=== PATIENT | male | born 1955 | race Caucasian/White ===

== ENCOUNTER 2018-11-23 08:55 | Day surgery (SDC) | payer BC ==
[2018-11-23] MEDS ORDERED: LIDOCAINE HCL 1% MPF 30 SOL ONE (10:09)
[2018-11-23] MEDS ORDERED: PROPOFOL 500 MG/50 ML EMU IV ONE (10:09)
[2018-11-23 10:43] VITALS: O2SAT 95
[2018-11-23 11:16] VITALS: BP 118/71; PULSE 56; RESP 20; TEMP 97.4
== END 2018-11-23 11:32 | disposition home or self-care (01) ==
LOC: SURG 08:55
PROVIDERS: ATTEND Surgery
DX: Z12.11 Encounter for screening for malignant neoplasm of colon (principal); Z86.010 Personal history of colon polyps
CPT/HCPCS: J2001; J2704